=== PATIENT | male | born 1995 | race Caucasian/White ===

== ENCOUNTER 2017-05-15 11:56 | Emergency (ER) | payer BC, OTHER ==
[~2017-05-15] VITALS: Ht 182.9 cm; Wt 109.1 kg
[2017-05-15] MEDS ORDERED: IOHEXOL 350 MG/ML 10 ML VIAL (for RAD DIAG) IVCONTRAST ONE (11:57)
[2017-05-15 11:59] VITALS: BP 158/90; PULSE 72; RESP 16; TEMP 98.9; O2SAT 98
--- NOTE | 2017-05-15 16:15 | PD ---
HPI Chief Complaint: Skin Problem Time Seen by Provider: 15:42 Travel History International Travel<30 days: No Contact w/Intl Traveler<30days: No Traveled to known affect area: No History of Present Illness HPI This is a 22-year-old male presents for evaluation of abdominal pain. Symptoms started yesterday. The pain is primarily most pronounced deep inside of his belly button. Pain is throbbing and constant. He has had purulent foul- smelling drainage from his belly button since yesterday. He has never had this problem before. He denies nausea, vomiting, fevers, chills, diarrhea, constipation. No other complaints. PFSH Past Medical History Medical History: Denies Significant Hx Tetanus Vaccination: > 5 Years Influenza Vaccination: No Past Surgical History Surgical History: No Previous Surgery Social History Alcohol Use: No (occu) Tobacco Use: No Substance Use: No Allergies-Medications (Allergen,Severity, Reaction): Coded Allergies: No Known Allergies (Unverified , 05/15/17) Reported Meds & Prescriptions Reported Meds & Active Scripts Active Keflex (Cephalexin) 500 Mg Capsule 500 Mg PO TID 10 Days Bactrim DS (Sulfamethoxazole-Trimethoprim) 800-160 Mg Tab 1 Tab PO BID Review of Systems Except as stated in HPI: all other systems reviewed are Neg Physical Exam Narrative GENERAL: Well-developed well-nourished male in no acute distress SKIN: Warm and dry. Initially the abdominal wall reveals some cellulitic changes around the periumbilical region. There is purulent drainage from the umbilicus. Unable to determine the depth of the deformation at the umbilicus with Q-tip swabbing. Tender to palpation deep inside of the umbilicus. HEAD: Atraumatic. Normocephalic. EYES: Pupils equal and round. No scleral icterus. No injection or drainage. ENT: No nasal bleeding or discharge. Mucous membranes pink and moist. NECK: Trachea midline. No JVD. CARDIOVASCULAR: Regular rate and rhythm. No murmur appreciated. RESPIRATORY: No accessory muscle use. Clear to auscultation. Breath sounds equal bilaterally. GASTROINTESTINAL: Abdomen soft, there is some periumbilical tenderness to palpation without guarding. MUSCULOSKELETAL: No obvious deformities. No clubbing. No cyanosis. No edema. NEUROLOGICAL: Awake and alert. No obvious cranial nerve deficits. Motor grossly within normal limits. Normal speech. PSYCHIATRIC: Appropriate mood and affect; insight and judgment normal. Data Data Last Documented VS Vital Signs Date Time Temp Pulse Resp B/P (MAP) Pulse Ox O2 Delivery O2 Flow Rate FiO2 05/15/17 11:59 98.9 72 16 158/90 (112) 98 Orders Orders Complete Blood Count With Diff (05/15/17 16:10) Comprehensive Metabolic Panel (05/15/17 16:10) Ct Abd/Pel W Iv Contrast(Rout) (05/15/17 16:10) Iv Access Insert/Monitor (05/15/17 16:10) Wound Culture And Gram Stain (05/15/17 16:10) Iohexol 350 Inj (Omnipaque 350 Inj) (05/15/17 11:57) Sulfamet-Trimeth Ds 800-160 Mg (Bactrim (05/15/17 18:15) Cephalexin (Keflex) (05/15/17 18:15) Ed Discharge Order (05/15/17 18:09) Labs Laboratory Tests Test 05/15/17 16:20 White Blood Count 8.5 TH/MM3 Red Blood Count 5.05 MIL/MM3 Hemoglobin 15.7 GM/DL Hematocrit 44.2 % Mean Corpuscular Volume 87.6 FL Mean Corpuscular Hemoglobin 31.1 PG Mean Corpuscular Hemoglobin Concent 35.5 % Red Cell Distribution Width 12.6 % Platelet Count 183 TH/MM3 Mean Platelet Volume 8.3 FL Neutrophils (%) (Auto) 59.5 % Lymphocytes (%) (Auto) 31.1 % Monocytes (%) (Auto) 8.1 % Eosinophils (%) (Auto) 0.7 % Basophils (%) (Auto) 0.6 % Neutrophils # (Auto) 5.1 TH/MM3 Lymphocytes # (Auto) 2.7 TH/MM3 Monocytes # (Auto) 0.7 TH/MM3 Eosinophils # (Auto) 0.1 TH/MM3 Basophils # (Auto) 0.1 TH/MM3 CBC Comment DIFF FINAL Differential Comment Blood Urea Nitrogen 9 MG/DL Creatinine 1.06 MG/DL Random Glucose 84 MG/DL Total Protein 8.2 GM/DL Albumin 4.5 GM/DL Calcium Level 9.1 MG/DL Alkaline Phosphatase 59 U/L Aspartate Amino Transf (AST/SGOT) 35 U/L Alanine Aminotransferase (ALT/SGPT) 75 U/L Total Bilirubin 0.9 MG/DL Sodium Level 138 MEQ/L Potassium Level 3.7 MEQ/L Chloride Level 102 MEQ/L Carbon Dioxide Level 30.3 MEQ/L Anion Gap 6 MEQ/L Estimat Glomerular Filtration Rate 86 ML/MIN MDM Medical Decision Making Medical Screen Exam Complete: Yes Emergency Medical Condition: Yes Medical Record Reviewed: Yes Differential Diagnosis Abdominal wall abscess, cellulitis, panniculitis, umbilical fistula Narrative Course 22-year-old male with abdominal wall redness, foul smelling drainage from his umbilicus. CT the abdomen and pelvis was ordered revealing no evidence of acute pathology intra-abdominally, no evidence of fistula. The patient appears to have an abscess deep inside of his umbilicus which is draining purulent drainage. Wound culture was performed. The patient has some mild associated stranding cellulitis. The patient will be discharged on Bactrim and Keflex. Discussed signs and symptoms that warrant return to the emergency room. He is stable for discharge. Diagnosis Primary Impression: Abdominal wall cellulitis Additional Impression: Abdominal wall abscess Additional Instructions: Medication as prescribed. Warm compresses several times a day 15 minutes at a time. Return for any acutely new or worsening symptoms. Med/Other Pt SpecificInfo: Prescription(s) given, Wound Care Scripts Cephalexin (Keflex) 500 Mg Capsule 500 MG PO TID for Infection for 10 Days, CAP 0 Refills Prov: Hetal Miles DO 05/15/17 Sulfamethoxazole-Trimethoprim (Bactrim DS) 800-160 Mg Tab 1 TAB PO BID for Infection, #20 TAB 0 Refills Prov: Hetal Miles DO 05/15/17 Disposition: 01 DISCHARGE HOME Condition: Stable Pramod Morales May 15, 2017 16:15
[2017-05-15 16:48] LABS: AUTOMATED NEUTROPHIL # 5.1 TH/MM3 (1.8-7.7); BASOPHIL # 0.1 TH/MM3 (0-0.2); BASOPHIL % 0.6 % (0.0-2.0); EOSINOPHIL # 0.1 TH/MM3 (0-0.4); EOSINOPHIL % 0.7 % (0.0-4.0); HEMATOCRIT 44.2 % (39.0-51.0); HEMOGLOBIN 15.7 GM/DL (13.0-17.0); LYMPH % 31.1 % (9.0-44.0); LYMPHOCYTE # 2.7 TH/MM3 (1.0-4.8); MEAN CELL VOLUME 87.6 FL (80.0-100.0); MEAN CORPUSCULAR HEMOGLOBIN 31.1 PG (27.0-34.0); MEAN CORPUSCULAR HGB CONC 35.5 % (32.0-36.0); MEAN PLATELET VOLUME 8.3 FL (7.0-11.0); MONO % 8.1 % (0.0-8.0); MONOCYTE # 0.7 TH/MM3 (0-0.9); NEUT % 59.5 % (16.0-70.0); PLATELET COUNT 183 TH/MM3 (150-450); RED BLOOD COUNT 5.05 MIL/MM3 (4.50-5.90); RED CELL DISTRIBUTION WIDTH 12.6 % (11.6-17.2); WHITE BLOOD COUNT 8.5 TH/MM3 (4.0-11.0)
[2017-05-15 16:54] LABS: ALBUMIN 4.5 GM/DL (3.4-5.0); BICARBONATE 30.3 MEQ/L (21.0-32.0); BLOOD UREA NITROGEN 9 MG/DL (7-18); CALCIUM 9.1 MG/DL (8.5-10.1); CHLORIDE 102 MEQ/L (98-107); CREATININE 1.06 MG/DL (0.60-1.30); GLOMERULAR FILTRATION RATE 86 ML/MIN (>89); GLUCOSE,RANDOM 84 MG/DL (74-106); SODIUM (NA) 138 MEQ/L (136-145)
[2017-05-15 16:55] LABS: ALT (GPT) 75 U/L (12-78); AST (GOT) 35 U/L (15-37)
[2017-05-15 16:57] LABS: ALKALINE PHOSPHATASE 59 U/L (45-117); TOTAL BILIRUBIN ADULT 0.9 MG/DL (0.2-1.0); TOTAL PROTEIN 8.2 GM/DL (6.4-8.2)
--- NOTE | 2017-05-15 17:43 | RADRPT ---
EXAM DATE/TIME: 05/15/2017 17:09 [facility] COMPARISON: No previous studies available for comparison. INDICATIONS : Diffuse pain in umbilical region. IV CONTRAST: 94 cc Omnipaque 350 (iohexol) IV ORAL CONTRAST: No oral contrast ingested. RADIATION DOSE: 10.03 CTDIvol (mGy) MEDICAL HISTORY : None SURGICAL HISTORY : None. ENCOUNTER: Initial ACUITY: 1 day PAIN SCALE: 7/10 LOCATION: Bilateral upper quadrant TECHNIQUE: Volumetric scanning of the abdomen and pelvis was performed. Using automated exposure control and ad justment of the mA and/or kV according to patient size, radiation dose was kept as low as reasonably achievable to obtain optimal diagnostic quality images. DICOM format image data is available electro nically for review and comparison. FINDINGS: The lung base is are clear. The liver is mildly fatty replaced. Gallbladder unremarkable Spleen and pancreas are normal Adrenal glands are unremarkable There is symmetrical renal function There is no ascites or adenopathy There no inflammatory changes in the abdomen Diverticuli are present there in the sigmoid colon without inflammatory changes. Bladder prostate ar e unremarkable Abdominal wall is intact Review of bone windows reveals only degenerative changes. CONCLUSION: 1. Negative for acute process. I do not see an etiology for the diffuse abdominal pain. Jeyson Pizarro MD FACR on May 15, 2017 at 17:39 Board Certified Radiologist. This report was verified electronically.
[2017-05-15] MEDS ORDERED: CEPH-460 PO (18:06)
[2017-05-15] MEDS ORDERED: BACT800T5 PO (18:06)
[2017-05-15] MEDS ORDERED: SULFAMETHOXAZOLE-TRIMETHOPRIM DS 800-160 MG TAB PO ONE (18:15)
[2017-05-15] MEDS ORDERED: CEPHALEXIN MONOHYDRATE 500 MG CAP PO ONE (18:15)
== END 2017-05-15 19:01 | disposition home or self-care (01) ==
LOC: NEPD 11:56
DX: L03.311 Cellulitis of abdominal wall (principal); L02.211 Cutaneous abscess of abdominal wall; B96.20 Unspecified Escherichia coli [E. coli] as the cause of diseases classified elsewhere
CPT/HCPCS: 74177; 80053; 85025; 86403; 87070; 87077; 87186; 99285; Q9967